=== PATIENT | male | born 1975 | race African-American/Black ===

== ENCOUNTER 2020-02-12 12:46 | Inpatient (IN) | payer OTHER ==
[2020-02-12] VITALS (12 sets, daily range): BP systolic 125–148; BP diastolic 84–113
[~2020-02-12] VITALS: Ht 175.3 cm; Wt 101.9 kg
--- NOTE | 2020-02-12 13:08 | PHYS DOC ---
Past Medical History Past Medical History: Hypertension General Adult EDM: Chief Complaint: CHEST PAIN HPI: HPI: 44-year-old male with significant history of hypertension, who presents for evaluation of anterior chest pressure that began at rest about 1 hour prior to arrival at his correctional facility. Outside EKG performed at 1128 this morning showed inferolateral T wave inversions. Upon arrival to the ED, his EKG shows an anteroseptal STEMI. Associated dyspnea. Received aspirin and 2 sublingual nitroglycerin prior to arrival with mild efficacy. No prior PCI. Review of Systems: Review of Systems: Gen: No fever, chills. Eyes: No blurred vision, diplopia. ENT: No nasal congestion, sore throat. CV: Reports chest pain. Resp. Reports dyspnea. GI: No abd pain, N/V. Neuro: No SOUTH, dizziness, weakness. MSK: No myalgia, arthralgia, back pain. Skin: No acute rash or lesion. Remainder of systems negative unless otherwise specified. Heart Score: Risk Factors: Risk Factors: DM, Current or recent (<one month) smoker, HTN, HLP, family history of CAD, obesity. Risk Scores: Score 0 - 3: 2.5% MACE over next 6 weeks - Discharge Home Score 4 - 6: 20.3% MACE over next 6 weeks - Admit for Clinical Observation Score 7 - 10: 72.7% MACE over next 6 weeks - Early Invasive Strategies Allergies: Allergies: Allergies Coded Allergies Type Severity Reaction Last Updated Verified No Known Drug Allergies 02/12/20 No Physical Exam: PE: Gen: NAD. Well nourished. Head: NC/AT. Eyes: No scleral icterus. No conjunctival injection. ENT: MMM. Posterior OP clear. Neck: Supple. CV: RRR. Peripheral pulses intact. Resp: CTAB. Abd: Soft. NT. ND. MSK: No peripheral cyanosis. No edema. Neuro: Awake and alert. Skin. Warm. Dry. Psych: Appropriate mood & affect. EKG: EKG: EKG at 1256. Sinus rhythm. Heart rate 67. ST elevation in the anteroseptal leads. Prior inferolateral T wave inversions no longer present from EKG performed at 1128 (outside facility). Normal intervals. Interpreted by me. Prehospital EKG performed 1128 available for my review. Sinus rhythm. Inferolateral T wave inversions. Normal intervals. No prior EKG to compare. Interpreted by me. Radiology/Procedures: Radiology/Procedures: [] Course & Med Decision Making: Course & Med Decision Making Pertinent Labs and Imaging studies reviewed. (See chart for details) In summary, 44-year-old male who presents for evaluation of chest pain that began at rest about 1.5 hours prior to arrival. Prehospital EKG at his correctional facility shows inferolateral T wave inversions. These are resolved on presenting EKG in the ED, though now with presence of anteroseptal ST elevation. Dr. Vicente at bedside to evaluate patient, will take to cath. Will admit to hospitalist thereafter. Maryellen Disclaimer: Dragon Disclaimer: This electronic medical record was generated, in whole or in part, using a voice recognition dictation system. Departure Departure Impression: Primary Impression: Acute ST elevation myocardial infarction (STEMI) of anteroseptal wall Disposition: ADMITTED INPATIENT Admitting Physician: VENESSA ([facility]) Condition: GUARDED Referrals: VANESSA ROSALES MD (PCP) Justicifation of Admission Dx: Justifications for Admission: Justification of Admission Dx: Yes TN: Acute STEMI NATALIEMESHA DO Feb 12, 2020 13:08
[2020-02-12] MEDS ORDERED: fentaNYL PF VIAL 100 MCG/2 ML VIAL ONE (13:09)
[2020-02-12] MEDS ORDERED: IODIXANOL 320 MG/ML 100 ML VIAL. ONE (13:10)
[2020-02-12] MEDS ORDERED: MIDAZOLAM HCL/PF 5 MG/5 ML VIAL. ONE (13:10)
[2020-02-12] MEDS ORDERED: LIDOCAINE 1% Multi-Dose 20 ML VIAL. ONE (13:11)
[2020-02-12] MEDS ORDERED: HEPARIN for IV BOLUS 10,000 UNIT/10 ML VIAL. IV PRN (13:15)
[2020-02-12] MEDS ORDERED: MORPHINE SULFATE 2 MG/ML VIAL. IV ONE (13:15)
[2020-02-12] MEDS ORDERED: NITROGLYCERIN OINT 1 GM PACKET. TP ONE (13:15)
[2020-02-12] MEDS ORDERED: HEPARIN 25,000UTS/250ML PREMIX 250 ML IV PRN (13:15)
[2020-02-12 13:19] LABS: BASO % 1 % (0-3); EOS # 0.1 x10^3/uL (0.0-0.7); EOS % 2 % (0-3); HEMATOCRIT 40.7 % (39.0-53.0); HEMOGLOBIN 13.9 g/dL (13.0-17.5); LYMPH # 1.1 x10^3/uL (1.0-4.8); LYMPH % 37 % (24-48); MEAN CORPUSCULAR HEMOGLOBIN 32 pg (25-35); MEAN CORPUSCULAR HGB CONC 34 g/dL (31-37); MEAN CORPUSCULAR VOLUME 94 fL (79-100); MONO # 0.3 x10^3/uL (0.0-1.1); MONO % 9 % (0-9); NEUT # 1.5 x10^3/uL (1.8-7.7); NEUT % 51 % (31-73); PLATELET COUNT 189 x10^3/uL (140-400); RED BLOOD COUNT 4.34 x10^6/uL (4.30-5.70); RED CELL DISTRIBUTION WIDTH 12.9 % (11.5-14.5)
--- NOTE | 2020-02-12 13:21 | PDOC1 ---
History and Physical Date of Admission Date of Admission DATE: 02/12/20 TIME: 13:21 Identification/Chief Complaint Chief Complaint seen in er with stemi 44-year-old male with significant history of hypertension, who presents for evaluation of anterior chest pressure that began at rest about 1 hour prior to arrival at his correctional facility. Outside EKG performed at 1128 this morning showed inferolateral T wave inversions. Upon arrival to the ED, his EKG shows an anteroseptal STEMI. Associated dyspnea. Received aspirin and 2 sublingual nitroglycerin prior to arrival with mild efficacy. No prior PCI., remote smoker Past Medical History Past Medical History Past Medical History Past Medical History Past Medical History: Hypertension Cardiovascular: HTN Pulmonary: No pertinent hx GI: No pertinent hx Renal/: No pertinent hx Endocrine: No pertinent hx Family History Family History: High Cholestrol, Hypertension Social History Smoke: Quit ALCOHOL: none Drugs: None Current Medications Current Medications Current Medications Morphine Sulfate (Morphine Sulfate) 2 mg 1X ONCE IV ; Start 02/12/20 at 13:15; Stop 02/12/20 at 13:16; Status DC Ticagrelor (Brilinta) 180 mg BID PO ; Start 02/12/20 at 21:00; Status UNV Heparin Sodium/ Dextrose 250 ml @ 0 mls/hr CONT PRN IV PER PROTOCOL; Start 02/12/20 at 13:15 Heparin Sodium (Porcine) (Heparin Sodium) 2,600 unit PRN Q6HRS PRN IV FOR UFH LEVEL LESS THAN 0.2; Start 02/12/20 at 13:15 Nitroglycerin (Nitro-Bid Oint) 1 inch 1X ONCE TP ; Start 02/12/20 at 13:15; Stop 02/12/20 at 13:16; Status DC Fentanyl Citrate (Fentanyl 2ml Vial) 100 mcg STK-MED ONCE .ROUTE ; Start 02/12/20 at 13:09; Stop 02/12/20 at 13:10; Status DC Midazolam HCl (Versed) 5 mg STK-MED ONCE .ROUTE ; Start 02/12/20 at 13:10; Stop 02/12/20 at 13:10; Status DC Iodixanol (Visipaque 320) 100 ml STK-MED ONCE .ROUTE ; Start 02/12/20 at 13:10; Stop 02/12/20 at 13:11; Status DC Lidocaine HCl (Lidocaine 1% 20ml Vial) 20 ml STK-MED ONCE .ROUTE ; Start 02/12/20 at 13:11; Stop 02/12/20 at 13:11; Status DC Heparin Sodium/ Sodium Chloride 1,000 ml @ As Directed STK-MED ONCE .ROUTE ; Start 02/12/20 at 13:11; Stop 02/12/20 at 13:11; Status DC Heparin Sodium/ Sodium Chloride 500 ml @ As Directed STK-MED ONCE .ROUTE ; Start 02/12/20 at 13:14; Stop 02/12/20 at 13:15; Status DC Allergies Allergies: Coded Allergies: No Known Drug Allergies (Unverified , 02/12/20) ROS General: No: Chills, Night Sweats, Fatigue, Malaise, Appetite, Other PSYCHOLOGICAL ROS: No: Anxiety, Behavioral Disorder, Concentration difficultie, Decreased libido, Depression, Disorientation, Hallucinations, Hostility, Irritablity, Memory difficulties, Mood Swings, Obsessive thoughts, Physical abuse, Sexual abuse, Sleep disturbances, Suicidal ideation, Other Eyes: No Blurry vision, No Decreased vision, No Double vision, No Dry eyes, No Excessive tearing, No Eye Pain, No Itchy Eyes, No Loss of vision, No Photophobia, No Scotomata, No Uses contacts, No Uses glasses, No Other HEENT: No: Heacaches, Visual Changes, Hearing change, Nasal congestion, Nasal discharge, Oral lesions, Sinus pain, Sore Throat, Epistaxis, Sneezing, Snoring, Tinnitus, Vertigo, Vocal changes, Other ALLERGY AND IMMUNOLOGY: No: Hives, Insect Bite Sensitivity, Itchy/Watery Eyes, Nasal Congestion, Post Nasal Drip, Seasonal Allergies, Other Hematological and Lymphatic: No: Bleeding Problems, Blood Clots, Blood Transfusions, Brusing, Night Sweats, Pallor, Swollen Lymph Nodes, Other ENDOCRINE: No: Breast Changes, Galactorrhea, Hair Pattern Changes, Hot Flashes, Malaise/lethargy, Mood Swings, Palpitations, Polydipsia/polyuria, Skin Changes, Temperature Intolerance, Unexpected Weight Changes, Other Breast: No New/Changing Breast Lumps, No Nipple changes, No Nipple discharge, No Other Respiratory: No: Cough, Hemoptysis, Orthopnea, Pleuritic Pain, Shortness of breath, SOB with excertion, Sputum Changes, Stridor, Tachypnea, Wheezing, Other Cardiovascular: yes Chest Pain; No Palpitations, No Orthopnea, No Paroxysmal Noc. Dyspnea, No Edema, No Lt Headedness, No Other Gastrointestinal: Yes Nausea; No Vomiting, No Abdominal Pain, No Diarrhea, No Constipation, No Melena, No Hematochezia, No Other Genitourinary: No Dysuria, No Frequency, No Incontinence, No Hematuria, No Retention, No Discharge, No Urgency, No Pain, No Flank Pain, No Other, No , No , No , No , No , No , No Musculoskeletal: No Gait Disturbance, No Joint Pain, No Joint Stiffness, No Joint Swelling, No Muscle Pain, No Muscular Weakness, No Pain In:, No Swelling In:, No Other Neurological: No Behavorial Changes, No Bowel/Bladder ControlChng, No Confusion, No Dizziness, No Gait Disturbance, No Headaches, No Impaired Coord/balance, No Memory Loss, No Numbness/Tingling, No Seizures, No Speech Problems, No Tremors, No Visual Changes, No Weakness, No Other Skin: No Dry Skin, No Eczema, No Hair Changes, No Lumps, No Mole Changes, No Mottling, No Nail Changes, No Pruritus, No Rash, No Skin Lesion Changes, No Other, No Acne Physical Exam General: Alert, Oriented X3, Cooperative, No acute distress HEENT: PERRLA Lungs: Clear to auscultation, Normal air movement Heart: S1S2, RRR, no thrills Breasts: Not examined Abdomen: Normal bowel sounds, Soft Rectal Exam: not examined PELVIC: Examination not indicated Extremities: No cyanosis Skin: No rashes, No breakdown, No significant lesion Neuro: Normal speech, Strength at 5/5 X4 ext, Normal tone, Sensation intact, Cranial nerves 3-12 NL Psych/Mental Status: Mental status NL, Mood NL Labs Labs Laboratory Tests Test 02/12/20 13:10 White Blood Count 3.0 x10^3/uL (4.0-11.0) Red Blood Count 4.34 x10^6/uL (4.30-5.70) Hemoglobin 13.9 g/dL (13.0-17.5) Hematocrit 40.7 % (39.0-53.0) Mean Corpuscular Volume 94 fL (79-100) Mean Corpuscular Hemoglobin 32 pg (25-35) Mean Corpuscular Hemoglobin Concent 34 g/dL (31-37) Red Cell Distribution Width 12.9 % (11.5-14.5) Platelet Count 189 x10^3/uL (140-400) Neutrophils (%) (Auto) 51 % (31-73) Lymphocytes (%) (Auto) 37 % (24-48) Monocytes (%) (Auto) 9 % (0-9) Eosinophils (%) (Auto) 2 % (0-3) Basophils (%) (Auto) 1 % (0-3) Neutrophils # (Auto) 1.5 x10^3/uL (1.8-7.7) Lymphocytes # (Auto) 1.1 x10^3/uL (1.0-4.8) Monocytes # (Auto) 0.3 x10^3/uL (0.0-1.1) Eosinophils # (Auto) 0.1 x10^3/uL (0.0-0.7) Basophils # (Auto) 0.0 x10^3/uL (0.0-0.2) Laboratory Tests Test 02/12/20 13:10 White Blood Count 3.0 x10^3/uL (4.0-11.0) Red Blood Count 4.34 x10^6/uL (4.30-5.70) Hemoglobin 13.9 g/dL (13.0-17.5) Hematocrit 40.7 % (39.0-53.0) Mean Corpuscular Volume 94 fL (79-100) Mean Corpuscular Hemoglobin 32 pg (25-35) Mean Corpuscular Hemoglobin Concent 34 g/dL (31-37) Red Cell Distribution Width 12.9 % (11.5-14.5) Platelet Count 189 x10^3/uL (140-400) Neutrophils (%) (Auto) 51 % (31-73) Lymphocytes (%) (Auto) 37 % (24-48) Monocytes (%) (Auto) 9 % (0-9) Eosinophils (%) (Auto) 2 % (0-3) Basophils (%) (Auto) 1 % (0-3) Neutrophils # (Auto) 1.5 x10^3/uL (1.8-7.7) Lymphocytes # (Auto) 1.1 x10^3/uL (1.0-4.8) Monocytes # (Auto) 0.3 x10^3/uL (0.0-1.1) Eosinophils # (Auto) 0.1 x10^3/uL (0.0-0.7) Basophils # (Auto) 0.0 x10^3/uL (0.0-0.2) Images Images PORTABLE CHEST 1V History: Chest pain, STEMI Comparison: None. Findings: Single view of the chest is submitted. There is no infiltrate, pneumothorax, or effusion. The pericardial cardiac silhouette is within normal limits in size. Impression: 1. There is no radiographic evidence of acute cardiopulmonary disease. 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
--- NOTE | 2020-02-12 13:35 | RAD ---
PORTABLE CHEST 1V History: Chest pain, STEMI Comparison: None. Findings: Single view of the chest is submitted. There is no infiltrate, pneumothorax, or effusion. The pericardial cardiac silhouette is within normal limits in size. Impression: 1. There is no radiographic evidence of acute cardiopulmonary disease. Electronically signed by: Julian Singer MD (02/12/2020 1:32 PM) [id number]
[2020-02-12 13:40] LABS: CALCIUM 8.8 mg/dL (8.5-10.1); CREATININE 0.9 mg/dL (0.7-1.3); MAGNESIUM 2.1 mg/dL (1.8-2.4); POTASSIUM 4.4 mmol/L (3.5-5.1)
[2020-02-12] MEDS ORDERED: fentaNYL PF VIAL 100 MCG/2 ML VIAL IV ONE (13:45)
[2020-02-12] MEDS ORDERED: MIDAZOLAM HCL/PF 5 MG/5 ML VIAL. IV ONE (13:45)
[2020-02-12] MEDS ORDERED: LIDOCAINE 1% Multi-Dose 20 ML VIAL. INJ ONE (13:45)
[2020-02-12] MEDS ORDERED: IODIXANOL 320 MG/ML 100 ML VIAL. IART ONE (13:45)
[2020-02-12] MEDS ORDERED: HEPARIN for IV BOLUS 10,000 UNIT/10 ML VIAL. IV ONE (14:00)
[2020-02-12] MEDS ORDERED: IV NORMAL SALINE 1000ML BAG 1,000 ML IV SCH ×2 (14:12→15:54)
[2020-02-12] MEDS ORDERED: NITROGLYCERIN SUBLINGUAL 0.4 MG BOTTLE OF 25. SL PRN (14:15)
[2020-02-12] MEDS ORDERED: 0.9 % SODIUM CHLORIDE 10 ML DISP.SYRIN. IV PRN ×2 (14:15→16:00)
[2020-02-12] MEDS ORDERED: [UNRECOGNIZED DRUG - CODE] OP (15:12)
[2020-02-12] MEDS ORDERED: NORT25CA PO (15:12)
[2020-02-12] MEDS ORDERED: CETI10TA16 PO (15:12)
[2020-02-12] MEDS ORDERED: MONT10TA49 PO (15:12)
[2020-02-12] MEDS ORDERED: TERA5CAP3 PO (15:12)
[2020-02-12] MEDS ORDERED: TRIA15OI TP (15:12)
[2020-02-12] MEDS ORDERED: ALBU2.5V8 IH (15:12)
[2020-02-12] MEDS ORDERED: CICL6.1H3 IH (15:12)
[2020-02-12] MEDS ORDERED: LORazepam 0.5 MG TABLET PO PRN (16:00)
[2020-02-12] MEDS ORDERED: ALBUTEROL SULFATE 2.5 MG/3 ML NEBU. INH PRN (16:00)
[2020-02-12] MEDS ORDERED: ACETAMINOPHEN 325 MG TABLET. PO PRN (16:00)
[2020-02-12] MEDS ORDERED: DOCUSATE SODIUM 100 MG CAPSULE. PO PRN (16:00)
[2020-02-12] MEDS ORDERED: MAG HYDROX/ALUMINUM HYD/SIMETH 30 ML ORAL.SUSP PO PRN (16:00)
[2020-02-12] MEDS ORDERED: guaiFENesin ORAL 200 MG/10 ML LIQUID. PO PRN (16:00)
[2020-02-12] MEDS ORDERED: cloNIDine HCL 0.1 MG TABLET PO PRN (16:00)
[2020-02-12] MEDS ORDERED: ONDANSETRON PF 4 MG/2 ML VIAL. IV PRN (16:00)
[2020-02-12] MEDS ORDERED: SODIUM PHOSPHATES 19/7GM 133 ML ENEMA. PR PRN (16:00)
--- NOTE | 2020-02-12 17:38 | EKG ---
[facility] [address] [place] [address] Test Date: 2020-02-12 Test Time: 12:56:01 Pat Name: EDIE ORTEGA Department: Room: Gender: Lpn Instructor: YADIRA : 1975 Requested By: MESHA ESTRADA Order Number: [id number] Reading MD: Measurements Intervals [place] Rate: 67 P: 0 NE: 160 QRS: 56 QRSD: 88 T: 33 QT: 344 QTc: 366 Interpretive Statements SINUS RHYTHM NO SPECIFIC ECG ABNORMALITIES RI6.02 No previous ECG available for comparison
[2020-02-12] MEDS: BUDESONIDE 0.5 MG/2 ML NEBU. NEB SCH (20:00)
[2020-02-12] MEDS: TRIAMCINOLONE ACETONIDE 0.1% TOPICAL OINTMENT 15GM TUBE. TP SCH (21:00)
[2020-02-12] MEDS ORDERED: TICAGRELOR 90 MG TABLET. PO SCH (21:00)
[2020-02-12] MEDS ORDERED: MONTELUKAST SODIUM 10 MG TABLET. PO SCH (21:00)
[2020-02-12] MEDS ORDERED: TERAZOSIN 5 MG CAPSULE. PO SCH (21:00)
[2020-02-12] MEDS ORDERED: NORTRIPTYLINE 25 MG CAPSULE PO SCH (21:00)
[2020-02-12] MEDS ORDERED: NON FORMULARY ITEM (Ciclesonide (Alvesco) 6.1 GM) IH SCH (21:00)
[2020-02-12] MEDS ORDERED: CETIRIZINE HCL 10 MG TABLET. PO SCH (21:00)
[2020-02-13 03:23] VITALS: BP 128/80
[2020-02-13 06:10] LABS: HEMATOCRIT 38.8 % (39.0-53.0); HEMOGLOBIN 13.3 g/dL (13.0-17.5); RED BLOOD COUNT 4.2 x10^6/uL (4.30-5.70); RED CELL DISTRIBUTION WIDTH 13.1 % (11.5-14.5); WHITE BLOOD COUNT 4.6 x10^3/uL (4.0-11.0)
[2020-02-13 06:48] LABS: CHOLESTEROL/HDL RATIO 2.4; MAGNESIUM 2.1 mg/dL (1.8-2.4)
[2020-02-13 07:00] VITALS: BP 117/76
[2020-02-13] MEDS ORDERED: ASPIRIN ENTERIC COATED 81 MG TABLET.DR. PO SCH (08:00)
[2020-02-13] MEDS: BUDESONIDE 0.5 MG/2 ML NEBU. NEB SCH (08:26)
[2020-02-13] MEDS ORDERED: LISINOPRIL 5 MG TABLET. PO SCH (09:00)
[2020-02-13] MEDS: TRIAMCINOLONE ACETONIDE 0.1% TOPICAL OINTMENT 15GM TUBE. TP SCH ×2 (09:00→14:00)
--- NOTE | 2020-02-13 09:07 | CARD ---
MR#: [id number] Date of Study: 02/12/2020 Ordering Physician: ALEXEY JIMENEZ, Referring Physician: ALEXEY JIMENEZ, Mk: Criselda Reynoso, RT (R) APPROVED REPORT Procedures Left heart catheterization Selective coronary angiogram Left ventriculogram Aortic root injection The patient is a 44-year-old male who developed chest pain earlier today. He was seen at a clinic at a local institution and had inferior T wave inversion. He was transported to the emergency room at [facility]. He continues to have chest pain. His EKG showed mild ST elevation anteriorly. In the setting of continued chest pain and abnormal EKG findings a cardiac catheterization was recom mended. Risks and benefits of the procedure were discussed with the patient. He agreed to proceed. After informed consent was obtained the patient was brought to the heart catheterization lab. The ar ea the right femoral artery was prepared in usual manner with Betadine, sterile draping and local ane sthetic. An 18-gauge needle was used to enter the right femoral artery, a wire placed and a 6 Monegasque sheath placed over the wire. A 6 Monegasque JL4 diagnostic catheter was used to engage the left coronar y system and sequential injections of various views were obtained. A 6 Monegasque Tremaine right diagno stic catheter was used to engage the right coronary artery and sequential injections of various views were obtained. A pigtail catheter was advanced the left ventricle. A 30 degree TOBIAS left ventriculo gram was performed. Pullback pressures were measured. A 30 degree TRUE aortic root injection was per formed. All catheter exchanges were performed over a J-wire. The [facility] Injection of the sheath showed normal placement. The sheath was removed and sealed with an An korey-Seal product. Patient was moved to the holding area in stable condition. There were no immediat e complications. Findings. Hemodynamics. LV 112/2/14. Aortic root 110/92. Coronaries. Left main. The left main was a large vessel with no lesions. Left anterior descending. The LAD was a large vessel with normal distribution. It had no lesions. There was a suggestion of mild distal slow flow. Left circumflex. The left circumflex was a large dominant vessel. There were no lesions. Right coronary artery. The right coronary was a moderate size nondominant vessel. There were no les ions. Left ventriculogram. The left ventricle showed normal left ventricular systolic function. Aortic root. The aortic root appeared normal without aortic insufficiency or enlargement. <Conclusion> No angiographic evidence of coronary artery disease. Normal left ventricular systolic function. Normal aortic root. Signed by : Alexey Jimenez MD Electronically Approved : 02/13/2020 09:07:05
[2020-02-13 11:00] VITALS: BP 130/78
--- NOTE | 2020-02-13 11:11 | PDOC ---
CARDIO Progress Notes Date and Time Date of Service 02/13/20 Time of Evaluation 1100 Subjective Subjective: No Chest Pain, No shortness of breath, No Palpitations Vitals Vitals Vital Signs Date Time Temp Pulse Resp B/P (MAP) Pulse Ox O2 Delivery O2 Flow Rate FiO2 02/13/20 08:54 75 117/69 02/13/20 08:30 98 Room Air 02/13/20 07:00 97.7 21 97.7 02/12/20 19:50 2.0 Weight Weight [ ] Input and Output Intake and Output Intake and Output 02/13/20 07:00 Intake Total 920 ml Output Total 800 ml Balance 120 ml Intake Oral 920 ml Output Urine Total 800 ml Laboratory Labs Laboratory Tests Test 02/12/20 13:10 02/12/20 13:15 02/12/20 16:00 02/12/20 19:15 White Blood Count 3.0 x10^3/uL (4.0-11.0) Red Blood Count 4.34 x10^6/uL (4.30-5.70) Hemoglobin 13.9 g/dL (13.0-17.5) Hematocrit 40.7 % (39.0-53.0) Mean Corpuscular Volume 94 fL (79-100) Mean Corpuscular Hemoglobin 32 pg (25-35) Mean Corpuscular Hemoglobin Concent 34 g/dL (31-37) Red Cell Distribution Width 12.9 % (11.5-14.5) Platelet Count 189 x10^3/uL (140-400) Neutrophils (%) (Auto) 51 % (31-73) Lymphocytes (%) (Auto) 37 % (24-48) Monocytes (%) (Auto) 9 % (0-9) Eosinophils (%) (Auto) 2 % (0-3) Basophils (%) (Auto) 1 % (0-3) Neutrophils # (Auto) 1.5 x10^3/uL (1.8-7.7) Lymphocytes # (Auto) 1.1 x10^3/uL (1.0-4.8) Monocytes # (Auto) 0.3 x10^3/uL (0.0-1.1) Eosinophils # (Auto) 0.1 x10^3/uL (0.0-0.7) Basophils # (Auto) 0.0 x10^3/uL (0.0-0.2) Sodium Level 141 mmol/L (136-145) Potassium Level 4.4 mmol/L (3.5-5.1) Chloride Level 104 mmol/L (98-107) Carbon Dioxide Level 31 mmol/L (21-32) Anion Gap 6 (6-14) Blood Urea Nitrogen 15 mg/dL (8-26) Creatinine 0.9 mg/dL (0.7-1.3) Estimated GFR (Cockcroft-Gault) 112.0 Glucose Level 94 mg/dL (70-99) Calcium Level 8.8 mg/dL (8.5-10.1) Magnesium Level 2.1 mg/dL (1.8-2.4) Troponin I Quantitative < 0.017 ng/mL (0.000-0.055) < 0.017 ng/mL (0.000-0.055) < 0.017 ng/mL (0.000-0.055) Bedside Troponin I 0.00 ng/ml (<0.08) Test 02/13/20 04:50 White Blood Count 4.6 x10^3/uL (4.0-11.0) Red Blood Count 4.20 x10^6/uL (4.30-5.70) Hemoglobin 13.3 g/dL (13.0-17.5) Hematocrit 38.8 % (39.0-53.0) Mean Corpuscular Volume 92 fL (79-100) Mean Corpuscular Hemoglobin 32 pg (25-35) Mean Corpuscular Hemoglobin Concent 34 g/dL (31-37) Red Cell Distribution Width 13.1 % (11.5-14.5) Platelet Count 162 x10^3/uL (140-400) Magnesium Level 2.1 mg/dL (1.8-2.4) Troponin I Quantitative < 0.017 ng/mL (0.000-0.055) Triglycerides Level 43 mg/dL (0-150) Cholesterol Level 148 mg/dL (0-200) LDL Cholesterol, Calculated 78 mg/dL (0-100) VLDL Cholesterol, Calculated 9 mg/dL (0-40) Non-HDL Cholesterol Calculated 87 mg/dL (0-129) HDL Cholesterol 61 mg/dL (40-60) Cholesterol/HDL Ratio 2.4 Physical Exam HEENT: Neck Supple W Full Motion Chest: Symmetric LUNGS: Clear to Auscultation Heart: S1S2, RRR, no thrills Abdomen: Soft N/T Extremities: No Edema Neurology: alert, oriented, follow commands Assessment Assessment 1. Chest pain; EKG with concerns for ST elevation. Cardiac cath with normal coronaries. Troponin series normal, AMI ruled out 2. Hypertension; controlled 3. Hyperlipidemia; Lipids on goal Recommendations Echo to assess LV systolic function Continue present therapy. Supportive care Okay to discharge from a CV standpoint. Justicifation of Admission Dx: Justifications for Admission: Justification of Admission Dx: Yes MN: Acute STEMI MIRIAN JOHNSON APRN Feb 13, 2020 11:11
[2020-02-13] MEDS ORDERED: NITR0.4T24 SL (11:40)
--- NOTE | 2020-02-13 11:42 | SNU/HH DC ---
DISCHARGE ORDERS DISCHARGE INFORMATION: DISCHARGE DATE: Feb 13, 2020 FINAL DIAGNOSIS Problems Medical Problems: (1) Acute ST elevation myocardial infarction (STEMI) of anteroseptal wall Status: Acute CONDITION ON DISCHARGE: Stable CODE STATUS: Code Status: Full JAIL: SNF STAY <30 DAYS: No HOSPICE: HOSPICE: No HOSPICE EVAL & TREAT: No LTAC: ADMIT TO LTAC: No FOLLOW-UP: PHYSICIAN FOLLOW-UP: PCP within 1 week of discharge LAB ORDERS FOR FOLLOW-UP: CBC, BMP DISCHARGE MEDICATIONS: Home Meds Active Scripts Nitroglycerin (NITROSTAT) 0.4 Mg Tab.subl, 0.4 MG SL PRN Q5MIN PRN for CHEST PAIN for 28 Days, #60 TAB Prov:KELLEE TUCKER MD 02/13/20 Reported Medications Cetirizine Hcl (CETIRIZINE HCL) 10 Mg Tablet, 10 MG PO HS for allergies, TAB 02/12/20 Montelukast Sodium (MONTELUKAST SODIUM TABLET ) 10 Mg Tablet, 10 MG PO HS for FOR ASTHMA, TAB 0 Refills 02/12/20 Nortriptyline Hcl (NORTRIPTYLINE HCL) 25 Mg Capsule, 25 MG PO HS for HTN, CAP 02/12/20 Terazosin Hcl (TERAZOSIN HCL) 5 Mg Capsule, 5 MG PO HS for HTN, CAP 02/12/20 Ciclesonide (ALVESCO) 6.1 Gm Hfa.aer.ad, 6.1 GM IH BID for asthma, INHALER 02/12/20 Albuterol Sulfate (Proair Hfa) 8.5 Gm Hfa.aer.ad, 2 PUFF IH TWICE WEEKLY PRN for wheezing for 21 Days, #1 INHALER 0 Refills 02/12/20 Tetrahydrozoline Hcl/Zn Sulf (VISINE ALLERGY RELIEF DROP) 15 Ml Drops, 15 ML OP BID for allergies, DROP 02/12/20 Discontinued Reported Medications Triamcinolone Acetonide (TRIAMCINOLONE ACETONIDE 0.1% OINT) 15 Gm Oint...g., 1 COLEEN TP TID for WOUND CARE, #1 TUBE MIX WITH EUCERIN DIRECTED BY PHYSICIAN 02/12/20 KELLEE TUCKER MD Feb 13, 2020 11:41
--- NOTE | 2020-02-13 13:31 | CARD ---
MR#: [id number] Date of Study: 02/13/2020 Ordering Physician: MIRIAN JOHNSON, Referring Physician: MIRIAN JOHNSON, Tech: Romy Tanner [facility] APPROVED REPORT EXAM: Two-dimensional and M-mode echocardiogram with Doppler and color Doppler. Other Information Quality : Good INDICATION Chest Pain S-T Elevation 2D DIMENSIONS RVDd3.0 (2.9-3.5cm)Left Atrium(2D)3.8 (1.6-4.0cm) IVSd0.9 (0.7-1.1cm)Aortic Root(2D)2.9 (2.0-3.7cm) LVDd4.4 (3.9-5.9cm)LVOT Diameter2.4 (1.8-2.4cm) PWd0.9 (0.7-1.1cm)LVDs3.1 (2.5-4.0cm) FS (%) 29.7 %SV48.8 ml LVEF(%)57.1 (>50%) Aortic Valve AoV Peak Shaw.140.0cm/sAoV VTI23.1cm AO Peak GR.7.8mmHgLVOT Peak Shaw.121.5cm/s AO Mean GR.4mmHgAVA (VMAX)3.98cm2 MARISELA (VTI)4.30cm2 Mitral Valve MV E Hfcahdmq18.5cm/sMV DECEL LRCW325ua MV A Pdcuqnhi23.9cm/sE/A Ratio0.9 Tricuspid Valve TR P. Uhbpaghw527pl/sRAP [id number] TR Peak Gr.61aqAsJFOK39wuIi Pulmonary Vein S1 Ycmyehhi84.4cm/sD2 Ksjxodfl98.5cm/s LEFT VENTRICLE The left ventricle is normal size. There is normal left ventricular wall thickness. The left ventricu lar systolic function is normal and the ejection fraction is within normal range. The Ejection Fracti on is 55-60%. Septal motion consistent with conduction abnormality. RIGHT VENTRICLE The right ventricle is normal size. The right ventricular systolic function is normal. ATRIA The left atrium size is normal. The right atrium size is normal. The interatrial septum is intact wit h no evidence for an atrial septal defect or patent foramen ovale as noted on 2-D or Doppler imaging. AORTIC VALVE The aortic valve is normal in structure and function. Doppler and Color Flow revealed no significant aortic regurgitation. There is no significant aortic valvular stenosis. MITRAL VALVE The mitral valve is normal in structure and function. There is no evidence of mitral valve prolapse. There is no mitral valve stenosis. Doppler and Color Flow revealed no mitral valve regurgitation note d. TRICUSPID VALVE The tricuspid valve is normal in structure and function. Doppler and Color Flow revealed trace tricus pid regurgitation. The PA pressure was estimated at 21 mmHg. There is no tricuspid valve stenosis. PULMONIC VALVE The pulmonic valve is not well visualized. Doppler and Color Flow revealed no pulmonic valvular regur gitation. There is no pulmonic valvular stenosis. GREAT VESSELS The aortic root is normal in size. The ascending aorta is normal in size. The IVC is normal in size a nd collapses >50% with inspiration. PERICARDIAL EFFUSION There is no evidence of significant pericardial effusion. Critical Notification Critical Value: No <Conclusion> The left ventricle is normal size. The left ventricular systolic function is normal and the ejection fraction is within normal range. The Ejection Fraction is 55-60%. Doppler and Color Flow revealed no significant aortic regurgitation. There is no significant aortic valvular stenosis. Doppler and Color Flow revealed no mitral valve regurgitation noted. Doppler and Color Flow revealed trace tricuspid regurgitation. The PA pressure was estimated at 21 mmHg. Signed by : Howie Jimenez MD Electronically Approved : 02/13/2020 13:30:44
--- NOTE | 2020-02-13 14:37 | PDOC3 ---
[facility]-Discharge Summary Date of Admission: Date of Admission: Feb 12, 2020 Date of Discharge: Date of Discharge: Feb 13, 2020 Admission Diagnosis: Admitting Diagnosis: Acute ST elevation myocardial infarction (STEMI) of anteroseptal wall morbid obesity mild neutropenia, will follow remote tobacco use Discharge Diagnosis: Discharge Diagnosis: Acute ST elevation myocardial infarction (STEMI) of anteroseptal wall status post left heart cath negative for any coronary disease morbid obesity mild neutropenia, will follow remote tobacco use Consults: Consults: Cardiology Procedures: Procedures: Left heart cath without any stent placement or interventions done Hospital Course: Hospital Course: 44-year-old male with significant history of hypertension, who presents for e valuation of anterior chest pressure that began at rest about 1 hour prior to arrival at his correctional facility. Outside EKG performed at 1128 this morning showed inferolateral T wave inversions. Upon arrival to the ED, his EKG shows an anteroseptal STEMI. Associated dyspnea. Received aspirin and 2 sublingual nitroglycerin prior to arrival with mild efficacy. No prior PCI., remote smoker Patient taken to [facility] for left heart cath. No interventions were done no disease found. Patient was chest pain-free on day of discharge. The rest of his hospital course was uneventful. Patient re-return to correctional facility. Disposition: Disposition/Orders: D/C to Another Facility Activity: Activity: Resume previous activity Diet: Diet: Cardiac Medications: Home Meds Active Scripts Nitroglycerin (NITROSTAT) 0.4 Mg Tab.subl, 0.4 MG SL PRN Q5MIN PRN for CHEST PAIN for 28 Days, #60 TAB Prov:KELLEE TUCKER MD 02/13/20 Reported Medications Cetirizine Hcl (CETIRIZINE HCL) 10 Mg Tablet, 10 MG PO HS for allergies, TAB 02/12/20 Montelukast Sodium (MONTELUKAST SODIUM TABLET ) 10 Mg Tablet, 10 MG PO HS for FOR ASTHMA, TAB 0 Refills 02/12/20 Nortriptyline Hcl (NORTRIPTYLINE HCL) 25 Mg Capsule, 25 MG PO HS for HTN, CAP 02/12/20 Terazosin Hcl (TERAZOSIN HCL) 5 Mg Capsule, 5 MG PO HS for HTN, CAP 02/12/20 Ciclesonide (ALVESCO) 6.1 Gm Hfa.aer.ad, 6.1 GM IH BID for asthma, INHALER 02/12/20 Albuterol Sulfate (Proair Hfa) 8.5 Gm Hfa.aer.ad, 2 PUFF IH TWICE WEEKLY PRN for wheezing for 21 Days, #1 INHALER 0 Refills 02/12/20 Tetrahydrozoline Hcl/Zn Sulf (VISINE ALLERGY RELIEF DROP) 15 Ml Drops, 15 ML OP BID for allergies, DROP 02/12/20 Discontinued Reported Medications Triamcinolone Acetonide (TRIAMCINOLONE ACETONIDE 0.1% OINT) 15 Gm Oint...g., 1 COLEEN TP TID for WOUND CARE, #1 TUBE MIX WITH EUCERIN DIRECTED BY PHYSICIAN 02/12/20 Scheduled Cetirizine Hcl (Cetirizine Hcl), 10 MG PO HS, (Reported) Ciclesonide (Alvesco), 6.1 GM IH BID, (Reported) Montelukast Sodium (Montelukast Sodium Tablet ), 10 MG PO HS, (Reported) Nortriptyline Hcl (Nortriptyline Hcl), 25 MG PO HS, (Reported) Terazosin Hcl (Terazosin Hcl), 5 MG PO HS, (Reported) Tetrahydrozoline Hcl/Zn Sulf (Visine Allergy Relief Drop), 15 ML OP BID, (Reported) Scheduled PRN Albuterol Sulfate (Proair Hfa), 2 PUFF IH TWICE WEEKLY PRN for wheezing, (Reported) Nitroglycerin (Nitrostat), 0.4 MG SL PRN Q5MIN PRN for CHEST PAIN Discontinued Medications Triamcinolone Acetonide (Triamcinolone Acetonide 0.1% Oint), 1 COLEEN TP TID, (Reported) Total Time: Total Time: Total time spent was 35 minutes in preparing scripts, discharge planning with [facility] and RN and preparing this discharge summary Patient seen and examined on day of discharge. No acute abnormal findings. Justicifation of Admission Dx: Justifications for Admission: Justification of Admission Dx: Yes CT: Acute STEMI KELLEE TUCKER MD Feb 13, 2020 14:37
--- NOTE | 2020-02-13 14:40 | NUR ---
Discharge Note: FUNMI ORTEGA Discharge instructions and discharge home medications reviewed with Patient and a copy given. All questions have been answered and understanding verbalized. The following instructions and handouts were given: chest pain Discontinued lines and drains: Peripheral IV intact. Patient discharged to Home or Self Care with Law Enforcement via Wheelchair
== END 2020-02-13 15:13 | DRG 287 ==
LOC: EEVIPCON 12:46 → ER 12:46 → 1 WEST ICU 13:16 → 2 SOUTH 16:59
PROVIDERS: ADMIT Family Medicine; ATTEND Family Medicine
PROC: 4A023N7 Measurement of Cardiac Sampling and Pressure, Left Heart, Percutaneous Approach (ICD-10-PCS; principal; 2020-02-12)
PROC: B2111ZZ Fluoroscopy of Multiple Coronary Arteries using Low Osmolar Contrast (ICD-10-PCS; 2020-02-12)
PROC: B2151ZZ Fluoroscopy of Left Heart using Low Osmolar Contrast (ICD-10-PCS; 2020-02-12)
DX: R07.9 Chest pain, unspecified (principal); D70.9 Neutropenia, unspecified; E66.01 Morbid (severe) obesity due to excess calories; E78.5 Hyperlipidemia, unspecified; I10 Essential (primary) hypertension; I07.1 Rheumatic tricuspid insufficiency; Z68.33 Body mass index [BMI] 33.0-33.9, adult; Z82.49 Family history of ischemic heart disease and other diseases of the circulatory system; Z87.891 Personal history of nicotine dependence
CPT/HCPCS: 93458; 93567; 99285; G0269; 36415; 71045; 80048; 80061; 83735; 84484; 85025; 85027; 85347; 93005; 93306; 94640; 94760; 99152; 99153; C1760; C1769; C1892; J1644; J2250; J3010; J3490; J7030; Q9967; C1771; G0378; J7626